=== PATIENT | female | born 2005 | race African-American/Black ===

== ENCOUNTER 2024-10-29 20:12 | Emergency (ER) | payer OTHER, SELFPAY ==
[2024-10-29 20:16] VITALS: BP 108/69; PULSE 70; RESP 16; TEMP 36.1; O2SAT 100
--- NOTE | 2024-10-29 21:31 | PC.NURSE ---
Pt presents to ED c/o 11/20 R side groin area, onset this AM. Pt states she was getting ready for work, bent down to pull pants up then felt R leg go numb and pain shooting to groin area.
[2024-10-29 21:34] VITALS: BP 111/69; PULSE 71; RESP 18; O2SAT 99
--- NOTE | 2024-10-29 23:15 | ED_ITS ---
HPI - General Adult General Chief complaint: Unspecified Stated complaint: groin pain Time Seen by Provider: 10/29/24 22:12 History of Present Illness HPI narrative: 18-year-old female with no pertinent past medical history presenting with acute onset right groin pain after she was putting on pants today. She states that she stood up suddenly and felt a pulling sensation in her right groin that radiated towards the right flank/low hip area. States that it hurts with walking. Denies any difficulty raising the leg or having any neurological complaints such as weakness or numbness in the foot. No trauma or injury. No history of anything with this happened during the past. No midline back pain, fever, chills. No saddle anesthesias or incontinence issues. She is has not taken anything prior to arrival. Review of Systems Review of Systems: As reviewed above in HPI Exam Narrative: GENERAL: [Well-appearing, well-nourished, and in no acute distress.] HEAD: [Normocephalic, atraumatic.] EYES: [PERRLA and EOMI.] ENT: Nares clear, no rhinorrhea or epistaxis. Mucous membranes moist. NECK: Supple. CHEST: [Clear to auscultation. No respiratory distress.] HEART: [Regular rate and rhythm]. No murmur heard. [Normal peripheral pulses.] ABDOMEN: [Soft, nondistended], [nontender], [No rigidity or guarding] EXTREMITIES: Full range of motion with positive straight leg raise on the right side, EHL and FHL 5/5, hip flexors and extensors 5/5 strength. Negative contralateral straight leg raise. Reproducible tenderness over the inguinal crease and sartorius muscle distribution without any overlying skin changes. SKIN: Warm, dry, no rash. NEURO: [No focal deficits]. Alert and oriented [x3.] No saddle anesthesias or incontinence. EHL FHL 5/5 strength and sensation intact bilaterally. PSYCH: [Normal mood and affect.] Course Vital Signs Vital signs: Vital Signs Temperature 36.1 C L 10/29/24 20:16 Pulse Rate 70 10/29/24 20:16 Respiratory Rate 16 10/29/24 20:16 Blood Pressure 108/69 10/29/24 20:16 Pulse Oximetry 100 10/29/24 20:16 Oxygen Delivery Room Air 10/29/24 20:16 Temperature 36.1 C L 10/29/24 20:16 Pulse Rate 71 10/29/24 21:34 Respiratory Rate 18 10/29/24 21:34 Blood Pressure 111/69 10/29/24 21:34 Pulse Oximetry 99 10/29/24 21:34 Oxygen Delivery Room Air 10/29/24 20:16 Medical Decision Making MDM Narrative Medical decision making narrative: 18-year-old female presenting with right inguinal/groin region pain after she was putting on her pants and standing straight up feeling a sharp pulling sensation in the groin. Her examination shows full range of motion with positive straight leg raise on the right side, EHL and FHL 5/5, hip flexors and extensors 5/5 strength. Negative contralateral straight leg raise. Reproducible tenderness over the inguinal crease and sartorius muscle distribution without any overlying skin changes. No red flag signs or symptoms of any neurological concern and her symptoms are consistent with a pulled muscle. Patient provided Toradol and will be sent home with Tylenol and ibuprofen. Patient given return precautions and discharge instructions. Medical Records Medical records reviewed: Yes I reviewed the external patient's medical records. Vital Signs Vital Signs: Vital Signs Temperature 36.1 C L 10/29/24 20:16 Pulse Rate 70 10/29/24 20:16 Respiratory Rate 16 10/29/24 20:16 Blood Pressure 108/69 10/29/24 20:16 Pulse Oximetry 100 10/29/24 20:16 Oxygen Delivery Room Air 10/29/24 20:16 Temperature 36.1 C L 10/29/24 20:16 Pulse Rate 71 10/29/24 21:34 Respiratory Rate 18 10/29/24 21:34 Blood Pressure 111/69 10/29/24 21:34 Pulse Oximetry 99 10/29/24 21:34 Oxygen Delivery Room Air 10/29/24 20:16 Discharge Plan Discharge Clinical Impression: Pulled muscle, Strain of right inguinal muscle Patient Disposition: Home Condition: Stable Instructions: Antibiotic Form, Muscle Strain (DC), Groin Strain (ED), Groin Pain (ED) Additional Instructions: Your symptoms are consistent with a pulled muscle in your inguinal canal/inguinal region. Recommendations are for high-dose anti-inflammatories to control the pain and swelling. Return with any new or worsening concerns otherwise follow-up with regular doctor. Patient Language: Romanian Prescriptions: New acetaminophen [Tylenol Extra Strength] 500 mg tablet 1,000 mg PO TID PRN (Reason: pain) Qty: 30 0RF ibuprofen 600 mg tablet 600 mg PO TID PRN (Reason: pain) Qty: 20 0RF Follow-up/Referrals: UNKNOWN,DOCTOR [Primary Care Provider] - Time of Disposition: 23:10
[2024-10-29] MEDS: KETOROLAC 30 MG/ML VIAL (*BKC) IM (23:22)
[2024-10-29 23:39] VITALS: BP 116/72; PULSE 86; RESP 16; O2SAT 99
== END 2024-10-29 23:40 | disposition home or self-care (01) ==
LOC: ANHED 23:13
PROVIDERS: Emergency Provider Student in an Organized Health Care Education/Training Program
DX: S39.011A Strain of muscle, fascia and tendon of abdomen, initial encounter (principal); X50.9XXA Other and unspecified overexertion or strenuous movements or postures, initial encounter
CPT/HCPCS: 96372; 99283; J1885

== ENCOUNTER 2024-12-02 11:11 | Emergency (ER) | payer OTHER, SELFPAY ==
[2024-12-02] VITALS (10 sets, daily range): BP systolic 109–134; BP diastolic 71–99; PULSE 85–137; RESP 16–20; TEMP 36.7–37.1; O2SAT 99–100
--- NOTE | ~2024-12-02 | XR_ITS ---
EXAMINATION: XR chest 2V 12/02/2024 11:50 INDICATION: Dyspnea. Tachycardia. PROCEDURE: 2 view chest COMPARISON: No prior studies for comparison. FINDINGS: The lungs are clear. The cardiomediastinal silhouette is within normal limits. There are no pleural effusions. There is no pneumothorax suspected. IMPRESSION: 1: NO ACUTE CARDIOPULMONARY DISEASE. Reviewed, dictated and finalized at location A.
--- NOTE | 2024-12-02 11:17 | ECG_ITS ---
Test Date: 2024-12-02 11:24:37 Measurements Intervals [place] Rate: 101 P: 63 MS: 141 QRS: 45 QRSD: 72 T: 50 QT: 322 QTc: 418 Interpretive Statements SINUS TACHYCARDIA No previous ECG available for comparison Electronically Signed On 12-02-2024 16:59:25 CDT by Gerald Ballesteros M.D.
[2024-12-02] MEDS: ASPIRIN 81 MG CHEWABLE TABLET 324 MG PO (11:38)
[2024-12-02 11:43] LABS: Hematocrit 41.6 % (37.0-47.0); Hemoglobin 13.3 g/dL (12.0-15.0); Immature Granulocyte Percent A 0.2 % (0-0.5); Lymphocytes Absolute Auto 1.46 K/mm3 (0.9-3.2); Mean Corpuscular HGB Conc 32.0 g/dl (32-36); Mean Corpuscular Hemoglobin 28.1 pg (26-34); Mean Corpuscular Volume 87.8 fl (80-100); Nucleated Red Blood Cells Absolute Auto 0.000 K/mm3 (0.0-0.012); Nucleated Red Blood Cells Perc 0.0 % (0.0-0.2); Platelet Count Result 281 k/mm3 (150-375); Red Blood Count 4.74 M/mm3 (4.2-5.4); White Blood Count 5.2 K/mm3 (4.5-10.0)
[2024-12-02 11:54] LABS: INR 1.0; Partial Thromboplastin Time 26.3 Seconds (22.3-36.8); Prothrombin Time 13.3 Seconds (11.1-14.7)
[2024-12-02 12:06] LABS: Alanine Aminotransferase 14 U/L (6-35); Albumin Level 4.4 g/dL (3.7-5.6); Alkaline Phosphatase 66 U/L (45-116); Anion Gap 11 mmol/L (4-12); Aspartate Amino Transferase 26 U/L (14-36); Bilirubin,Total 0.5 mg/dL (0.2-1.3); Blood Urea Nitrogen 16 mg/dL (8-21); Calcium 9.5 mg/dL (8.9-10.7); Carbon Dioxide 20 mmol/L (22-30); Chloride 107 mmol/L (98-107); Estimated CRCL calculation 80 ml/min; Estimated Glomerular Filt Rate > 60; Glucose 126 mg/dL (65-110); Lipase 84 U/L (23-300); Potassium 4.1 mmol/L (3.4-5.0); Sodium 138 mmol/L (134-143); Total Protein 7.9 g/dL (6.3-8.6)
[2024-12-02 12:14] LABS: Troponin I < 0.012 ng/mL (0.000-0.034)
[2024-12-02 12:20] LABS: Influenza A QL RT-PCR Negative (Negative); Influenza B QL RT-PCR Negative (Negative); RSV RNA, RT-PCR Negative (Negative); SARS-CoV-2 RNA PCR Negative (Negative)
[2024-12-02] MEDS: BENZONATATE 100 MG CAPSULE PO (13:25)
--- NOTE | 2024-12-02 13:26 | ED.GENADULT ---
HPI - General Adult General Chief complaint: Chest Pain Stated complaint: chest tightness Time Seen by Provider: 12/02/24 11:59 History of Present Illness HPI narrative: 18-year-old female presents to the emergency department for evaluation for worsening cough and congestion. Patient reports symptoms have been ongoing for the last few days. Patient does have a history of asthma. Patient states she is not a current smoker. 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 Related Data Allergies Allergy/AdvReac Type Severity Reaction Status Date / Time Sulfa (Sulfonamide Allergy Unknown Unknown Verified 10/29/24 23:21 Antibiotics) Review of Systems Review of Systems: All systems reviewed & are unremarkable except as noted in HPI and below Exam Narrative: APPEARANCE: Well appearing, no pain, no distress, well-nourished. HEAD: normocephalic, atraumatic. EYES: PERRLA/EOMI, conjunctivae clear. NOSE: Normal no drainage EARS:TMS clear with good light reflex. THROAT: Pharynx clear, no exudate. NECK: Supple. No adenopathy, no masses. RESPIRATORY: Airway patent, respirations nonlabored. Clear to auscultation bilaterally, no rales, rhonchi, wheezing. CARDIOVASCULAR: Regular rate and rhythm without murmurs rubs or gallops. ABDOMINAL: Soft, nontender, nondistended, normal bowel sounds MUSCULOSKELETAL: Moves all extremities. Strength/ROM intact, No edema, No calf tenderness. NEURO: Alert. Cranial nerves II through XII intact. Good gait. Good coordination SKIN: Warm, dry. Normal Color Course Vital Signs Vital signs: Vital Signs Temperature 98.0 F 12/02/24 11:14 Pulse Rate 137 H 12/02/24 11:14 Respiratory Rate 20 12/02/24 11:14 Blood Pressure 130/75 12/02/24 11:14 Pulse Oximetry 100 12/02/24 11:14 Oxygen Delivery Room Air 12/02/24 11:14 Temperature 98.7 F 12/02/24 14:35 Pulse Rate 105 H 12/02/24 16:41 Respiratory Rate 16 12/02/24 16:41 Blood Pressure 114/75 12/02/24 16:41 Pulse Oximetry 99 12/02/24 16:41 Oxygen Delivery Room Air 12/02/24 11:14 Medical Decision Making [facility] Narrative Medical decision making narrative: APPEARANCE: Well appearing, no pain, no distress, well-nourished. HEAD: normocephalic, atraumatic. EYES: PERRLA/EOMI, conjunctivae clear. NOSE: Normal no drainage EARS:TMS clear with good light reflex. THROAT: Pharynx clear, no exudate. NECK: Supple. No adenopathy, no masses. RESPIRATORY: Airway patent, respirations nonlabored. Clear to auscultation bilaterally, no rales, rhonchi, wheezing. CARDIOVASCULAR: Regular rate and rhythm without murmurs rubs or gallops. ABDOMINAL: Soft, nontender, nondistended, normal bowel sounds MUSCULOSKELETAL: Moves all extremities. Strength/ROM intact, No edema, No calf tenderness. NEURO: Alert. Cranial nerves II through XII intact. Good gait. Good coordination SKIN: Warm, dry. Normal Color PSYCHIATRIC: Normal affect/mood. Differential Diagnosis Differential Diagnosis: Asthma, pneumonia, COVID, RSV, influenza, bronchitis Vital Signs Vital Signs: Vital Signs Temperature 98.0 F 12/02/24 11:14 Pulse Rate 137 H 12/02/24 11:14 Respiratory Rate 20 12/02/24 11:14 Blood Pressure 130/75 12/02/24 11:14 Pulse Oximetry 100 12/02/24 11:14 Oxygen Delivery Room Air 12/02/24 11:14 Temperature 98.7 F 12/02/24 14:35 Pulse Rate 105 H 12/02/24 16:41 Respiratory Rate 16 12/02/24 16:41 Blood Pressure 114/75 12/02/24 16:41 Pulse Oximetry 99 12/02/24 16:41 Oxygen Delivery Room Air 12/02/24 11:14 Lab Data Lab results reviewed: Yes I reviewed the patient's lab results. 12/02/24 11:30 12/02/24 11:30 Labs: Lab Results 12/02/24 12/02/24 12/02/24 Range/Units 11:30 11:34 14:36 WBC 5.2 (4.5-10.0) K/mm3 RBC 4.74 (4.2-5.4) M/mm3 Hgb 13.3 (12.0-15.0) g/dL Hct 41.6 (37.0-47.0) % MCV 87.8 (80-100) fl MCH 28.1 (26-34) pg MCHC 32.0 (32-36) g/dl RDW 12.6 (11.5-14.5) % Plt Count 281 (150-375) k/mm3 MPV 9.0 (7.4-10.4) fl Immature Gran % (Auto) 0.2 (0-0.5) % Neut % (Auto) 60.8 (45.5-73.1) % Lymph % (Auto) 27.9 (18.3-44.2) % [place] % (Auto) 8.8 H (2.6-8.5) % Eos % (Auto) 2.1 (0-4.4) % Baso % (Auto) 0.2 (0.2-1.2) % Lymph # (Auto) 1.46 (0.9-3.2) K/mm3 [place] # (Auto) 0.5 (0.1-0.6) K/mm3 Eos # (Auto) 0.1 (0-0.3) K/mm3 Baso # (Auto) 0.0 (0.0-0.1) K/mm3 Abs Immat Gran (auto) 0.01 (0.00-0.031) K/mm3 Absolute Neuts (auto) 3.2 (1.3-6.7) K/mm3 Absolute Nucleated RBC 0.000 (0.0-0.012) K/mm3 Nucleated RBC % 0.0 (0.0-0.2) % PT 13.3 (11.1-14.7) Seconds INR 1.0 APTT 26.3 (22.3-36.8) Seconds D-Dimer 0.30 (<0.48) ug/mL Sodium 138 (134-143) mmol/L Potassium 4.1 (3.4-5.0) mmol/L Chloride 107 (98-107) mmol/L Carbon Dioxide 20 L (22-30) mmol/L Anion Gap 11 (4-12) mmol/L BUN 16 (8-21) mg/dL Creatinine 0.70 (0.7-1.0) mg/dL Estim Creat Clear Calc 80 ml/min Estimated GFR > 60 (59 - ) Glucose 126 H (65-110) mg/dL Calcium 9.5 (8.9-10.7) mg/dL Total Bilirubin 0.5 (0.2-1.3) mg/dL AST 26 (14-36) U/L ALT 14 (6-35) U/L Alkaline Phosphatase 66 (45-116) U/L Troponin I < 0.012 < 0.012 (0.000-0.034) ng/mL Total Protein 7.9 (6.3-8.6) g/dL Albumin 4.4 (3.7-5.6) g/dL Lipase 84 (23-300) U/L Influenza A (RT-PCR) Negative (Negative) Influenza B (RT-PCR) Negative (Negative) RSV (RT-PCR) Negative (Negative) SARS-CoV-2 RNA (RT-PCR) Negative (Negative) Imaging Data Radiologist's impression: Impressions Chest X-Ray 12/02/24 11:57 IMPRESSION: 1: NO ACUTE CARDIOPULMONARY DISEASE. ECG Data EKG #1: EKG Interpretation: normal rate, tachycardia, no ectopy, non-specific ST changes, normal QRS, normal QT and NL axis Discharge Plan Discharge Clinical Impression: Bronchitis Patient Disposition: Home Condition: Stable Instructions: Antibiotic Form, Acute Bronchitis (ED) Additional Instructions: Albuterol as needed for cough and shortness of breath. Tessalon Perles for cough. Close follow-up with your primary care physician. If you have any worsening symptoms and please call or return to the emergency department. Patient Language: Malaysian Prescriptions: New benzonatate 100 mg capsule 100 mg PO TID PRN (Reason: cough) Qty: 14 0RF albuterol sulfate 90 mcg/actuation HFA aerosol inhaler 1 puff inhalation QID Qty: 6.7 0RF No Action acetaminophen [Tylenol Extra Strength] 500 mg tablet 1,000 mg PO TID PRN (Reason: pain) Qty: 30 0RF ibuprofen 600 mg tablet 600 mg PO TID PRN (Reason: pain) Qty: 20 0RF Follow-up/Referrals: UNKNOWN,DOCTOR [Primary Care Provider] -
[2024-12-02] MEDS: ALBUTEROL SULFATE NEB 2.5 MG/3 ML INH 5 MG INHALATION (13:37)
--- NOTE | 2024-12-02 14:23 | ECG_ITS ---
Test Date: 2024-12-02 14:27:30 Measurements Intervals [place] Rate: 129 P: 68 [place]: 138 QRS: 27 QRSD: 81 T: 55 QT: 311 QTc: 456 Interpretive Statements SINUS TACHYCARDIA NONSPECIFIC T-WAVE ABNORMALITY ABNORMAL RHYTHM ECG Compared to ECG 12/02/2024 11:24:37 T-wave abnormality now present Electronically Signed On 12-02-2024 17:08:13 CDT by Gerald Ballesteros M.D.
[2024-12-02] MEDS: LACTATED RINGERS 1,000 ML 999 ML IV CONT (15:00)
[2024-12-02 15:21] LABS: Troponin I < 0.012 ng/mL (0.000-0.034)
== END 2024-12-02 16:44 | disposition home or self-care (01) ==
PROVIDERS: Student in an Organized Health Care Education/Training Program; Emergency Provider Emergency Medicine
DX: J40 Bronchitis, not specified as acute or chronic (principal); Z20.822 Contact with and (suspected) exposure to COVID-19; R00.0 Tachycardia, unspecified; R94.31 Abnormal electrocardiogram [ECG] [EKG]
CPT/HCPCS: 36415; 71046; 80053; 83690; 84484; 85025; 85380; 85610; 85730; 87637; 93005; 94640; 96360; 99284; A9270; J7120

== ENCOUNTER 2024-12-18 16:49 | Emergency (ER) | payer OTHER, SELFPAY ==
--- NOTE | ~2024-12-18 | XR_ITS ---
EXAMINATION: XR foot LT min 3V DATE: 12/18/2024 17:21 INDICATION: Stepped on glass years prior now presenting with left foot pain TECHNIQUE: Dorsoplantar, two oblique and lateral views of the left foot were obtained. COMPARISON: None. FINDINGS: There are a few radiopaque foreign bodies projecting over the plantar soft tissues at the level of th e anterior process of the calcaneus. There is mild bulging of the overlying skin surface. The largest thin triangular foreign body measures 1.4 cm length and 1.5 cm maximal orthogonal dimension. Appeara nce of the foreign bodies would be consistent with reported history of glass fragments. Bone alignment is normal. No fracture. Joint spaces are normal. No cortical erosions or periosteal re action to suggest ostomy myelitis. Soft tissues are otherwise unremarkable with no soft tissue gas. IMPRESSION: 1. A few radiopaque foreign bodies projecting over the soft tissues plantar to the anterior process o f the calcaneus with appearance consistent with reported history of glass fragments. 2. No osseous abnormality. Reviewed, dictated and finalized at location A. IMPRESSION: 1. A few radiopaque foreign bodies projecting over the soft tissues plantar to the anterior process of the calcaneus with appearance consistent with reported history of glass fragments. 2. No osseous abnormality.
[2024-12-18 17:04] VITALS: BP 106/60; PULSE 100; RESP 16; TEMP 36.8; O2SAT 99
--- NOTE | 2024-12-18 17:10 | ED.EXTPRO ---
HPI - Extremity Problem General Chief complaint: Extremity Problem,Nontraumatic <Caitie Huffman PA-C - Last Filed: 12/18/24 17:12> Stated complaint: foot pain, stepped on glass years ago <Caitie Huffman PA-C - Last Filed: 12/18/24 17:12> Time Seen by Provider: 12/18/24 17:22 <Caitie Huffman PA-C - Last Filed: 12/18/24 17:12> Focused HPI: 18-year-old female presents to the emergency department for pain to the bottom of her left foot for the past couple of days. Patient states a couple years ago she stepped on a piece of glass and removed the glass. She notes that she did have some purulence from the spot after the incident but has not had any issues since. Over the past couple today she started to develop pain and wound to the bottom of her foot. She states it hurts when she steps on her foot and feels like something is trying to come out of her foot. She denies recent purulence, surrounding redness or fever. She was not evaluated for the glass in her foot at the time of the incident. GENERAL: Well-appearing, well-nourished, and in no acute distress. HEAD: Normocephalic, atraumatic. CHEST: Clear to auscultation. ?No respiratory distress. EXT: Hyperkeratotic region to the plantar aspect of the left foot with tenderness to palpation. No active drainage, surrounding erythema, warmth or fluctuation, no induration. HEART: Regular rate and rhythm.? NEURO: ?Alert and oriented x3. Patient screened in triage and initial orders placed.? ?Additional care and disposition to be based upon?diagnostic testing and treatment. <Caitie Huffman PA-C - Last Filed: 12/18/24 17:12> Related Data Allergies/Adverse reactions: Allergies Allergy/AdvReac Type Severity Reaction Status Date / Time Sulfa (Sulfonamide Allergy Unknown Unknown Verified 12/18/24 16:50 Antibiotics) <Caitie Huffman PA-C - Last Filed: 12/18/24 17:12> Review of Systems Review of Systems: All systems reviewed & are unremarkable except as noted in HPI and below <Shayna Dunbar, RETAIL ADVERTISING SALES MANAGER - Last Filed: 12/18/24 18:38> Exam Narrative: GENERAL: Well appearing, well-nourished, non-toxic, in no acute distress. HEAD: Normocephalic, atraumatic. NECK: Supple. No adenopathy, no masses. RESPIRATORY: Airway patent, respirations nonlabored. Clear to auscultation bilaterally, no rales, rhonchi, wheezing. CARDIOVASCULAR: Regular rate and rhythm without murmurs, rubs, or gallops. Peripheral pulses 2+ and equal bilaterally. ABDOMINAL: Soft, nontender, nondistended, no hepatosplenomegaly. Normoactive BS. MUSCULOSKELETAL: Moves all extremities. Strength/ROM intact without gross deformities. SKIN: Warm, dry, normal color. No rashes. Small area of scaling over site of pain, soft to palpation, no purulent drainage NEURO: A&O X3. Speech clear. Cranial nerves II-XII intact. No ataxic movements. PSYCHIATRIC: Appropriate mood and affect. Normal interaction. <Shayna Dunbar, [place]IDEA - Last Filed: 12/18/24 18:38> Course Vital Signs Vital signs: Vital Signs Temperature 36.8 C 12/18/24 17:04 Pulse Rate 100 12/18/24 17:04 Respiratory Rate 16 12/18/24 17:04 Blood Pressure 106/60 12/18/24 17:04 Pulse Oximetry 99 12/18/24 17:04 Oxygen Delivery Room Air 12/18/24 17:04 Temperature 36.8 C 12/18/24 17:04 Pulse Rate 100 12/18/24 17:04 Respiratory Rate 16 12/18/24 17:04 Blood Pressure 106/60 12/18/24 17:04 Pulse Oximetry 99 12/18/24 17:04 Oxygen Delivery Room Air 12/18/24 17:04 <Caitie Huffman PA-C - Last Filed: 12/18/24 17:12> Vital Signs Temperature 36.8 C 12/18/24 17:04 Pulse Rate 100 12/18/24 17:04 Respiratory Rate 16 12/18/24 17:04 Blood Pressure 106/60 12/18/24 17:04 Pulse Oximetry 99 12/18/24 17:04 Oxygen Delivery Room Air 12/18/24 17:04 Temperature 36.8 C 12/18/24 17:04 Pulse Rate 100 12/18/24 17:04 Respiratory Rate 16 12/18/24 17:04 Blood Pressure 106/60 12/18/24 17:04 Pulse Oximetry 99 12/18/24 17:04 Oxygen Delivery Room Air 12/18/24 17:04 <Shayna Dunbar, RETAIL ADVERTISING SALES MANAGER - Last Filed: 12/18/24 18:38> MDM - Extremity (Nontraumatic) MDM Narrative Medical decision making narrative: 18-year-old female presents to the emergency department for pain to the bottom of her left foot for the past couple of days. Patient states a couple years ago she stepped on a piece of glass and removed the glass. She notes that she did have some purulence from the spot after the incident but has not had any issues since. Over the past couple today she started to develop pain and wound to the bottom of her foot. She states it hurts when she steps on her foot and feels like something is trying to come out of her foot. She denies recent purulence, surrounding redness or fever. She was not evaluated for the glass in her foot at the time of the incident. Labs Ordered: CBC, CMP, lactic acid Imaging Ordered: Left foot x-ray Medications Ordered: Toradol 15 mg IV Results: Patient's blood work does not indicate any concerns for systemic infection. Pt's L foot x-ray indicates There are a few radiopaque foreign bodies projecting over the plantar soft tissues at the level of the anterior process of the calcaneus. There is mild bulging of the overlying skin surface. The largest thin triangular foreign body measures 1.4 cm length and 1.5 cm maximal orthogonal dimension. Appearance of the foreign bodies would be consistent with reported history of glass fragments. Bone alignment is normal. No fracture. Joint spaces are normal. No cortical erosions or periosteal reaction to suggest ostomy myelitis. Soft tissues are otherwise unremarkable with no soft tissue gas. Diagnosis: Foreign object in foot, L foot pain Consults: Podiatry (outpatient) Patient Education/Shared MDM: Results of lab work and x-ray shared with patient. She endorses improvement of symptoms following medication administration. Patient strongly advised to follow-up with of insurance marketing specialist as soon as possible. She will be discharged home with a prescription for ibuprofen 800 mg and Keflex PO Strict return precautions provided. Patient verbalized understanding and is in agreement with plan. Vital signs stable at time of discharge. All questions answered. <Shayna Dunbar APRN - Last Filed: 12/18/24 18:38> Differential Diagnosis Differential diagnosis: Likely cellulitis and other (Foreign object in foot, sepsis, abscess) <Shayna Dunbar APRN - Last Filed: 12/18/24 18:38> Lab Data Result diagrams: 12/18/24 18:07 12/18/24 18:07 <Caitie Huffman PA-C - Last Filed: 12/18/24 17:12> Labs: Lab Results 12/18/24 Range/Units 18:07 WBC 5.2 (4.5-10.0) K/mm3 RBC 4.05 L (4.2-5.4) M/mm3 Hgb 11.7 L (12.0-15.0) g/dL Hct 36.2 L (37.0-47.0) % MCV 89.4 (80-100) fl MCH 28.9 (26-34) pg MCHC 32.3 (32-36) g/dl RDW 12.8 (11.5-14.5) % Plt Count 265 (150-375) k/mm3 MPV 8.9 (7.4-10.4) fl Immature Gran % (Auto) 0.2 (0-0.5) % Neut % (Auto) 42.7 L (45.5-73.1) % Lymph % (Auto) 44.0 (18.3-44.2) % [place] % (Auto) 10.0 H (2.6-8.5) % Eos % (Auto) 2.7 (0-4.4) % Baso % (Auto) 0.4 (0.2-1.2) % Lymph # (Auto) 2.29 (0.9-3.2) K/mm3 [place] # (Auto) 0.5 (0.1-0.6) K/mm3 Eos # (Auto) 0.1 (0-0.3) K/mm3 Baso # (Auto) 0.0 (0.0-0.1) K/mm3 Abs Immat Gran (auto) 0.01 (0.00-0.031) K/mm3 Absolute Neuts (auto) 2.2 (1.3-6.7) K/mm3 Absolute Nucleated RBC 0.000 (0.0-0.012) K/mm3 Nucleated RBC % 0.0 (0.0-0.2) % Sodium Pending Potassium Pending Chloride Pending Carbon Dioxide Pending Anion Gap Pending BUN Pending Creatinine Pending Estim Creat Clear Calc Pending Estimated GFR Pending Glucose Pending Lactic Acid 1.3 (0.7-2.0) mmol/L Calcium Pending Total Bilirubin Pending AST Pending ALT Pending Alkaline Phosphatase Pending Total Protein Pending Albumin Pending <Caitie Huffman PA-C - Last Filed: 12/18/24 17:12> Lab Results 12/18/24 Range/Units 18:07 WBC 5.2 (4.5-10.0) K/mm3 RBC 4.05 L (4.2-5.4) M/mm3 Hgb 11.7 L (12.0-15.0) g/dL Hct 36.2 L (37.0-47.0) % MCV 89.4 (80-100) fl MCH 28.9 (26-34) pg MCHC 32.3 (32-36) g/dl RDW 12.8 (11.5-14.5) % Plt Count 265 (150-375) k/mm3 MPV 8.9 (7.4-10.4) fl Immature Gran % (Auto) 0.2 (0-0.5) % Neut % (Auto) 42.7 L (45.5-73.1) % Lymph % (Auto) 44.0 (18.3-44.2) % [place] % (Auto) 10.0 H (2.6-8.5) % Eos % (Auto) 2.7 (0-4.4) % Baso % (Auto) 0.4 (0.2-1.2) % Lymph # (Auto) 2.29 (0.9-3.2) K/mm3 [place] # (Auto) 0.5 (0.1-0.6) K/mm3 Eos # (Auto) 0.1 (0-0.3) K/mm3 Baso # (Auto) 0.0 (0.0-0.1) K/mm3 Abs Immat Gran (auto) 0.01 (0.00-0.031) K/mm3 Absolute Neuts (auto) 2.2 (1.3-6.7) K/mm3 Absolute Nucleated RBC 0.000 (0.0-0.012) K/mm3 Nucleated RBC % 0.0 (0.0-0.2) % Sodium Pending Potassium Pending Chloride Pending Carbon Dioxide Pending Anion Gap Pending BUN Pending Creatinine Pending Estim Creat Clear Calc Pending Estimated GFR Pending Glucose Pending Lactic Acid 1.3 (0.7-2.0) mmol/L Calcium Pending Total Bilirubin Pending AST Pending ALT Pending Alkaline Phosphatase Pending Total Protein Pending Albumin Pending <Shayna Dunbar APRN - Last Filed: 12/18/24 18:38> Discharge Plan Discharge Clinical Impression: Left foot pain, Puncture wound of left foot with foreign body <Caitie Huffman PA-C - Last Filed: 12/18/24 17:12> Patient Disposition: Home <Caitie Huffman PA-C - Last Filed: 12/18/24 17:12> Condition: Stable <Caitie Huffman PA-C - Last Filed: 12/18/24 17:12> Instructions: Antibiotic Form <Caitie Huffman PA-C - Last Filed: 12/18/24 17:12> Patient Language: Sami <PAYTON Vale Last Filed: 12/18/24 17:12> Prescriptions: New cephalexin 500 mg capsule 500 mg PO Q8H 7 Days Qty: 21 0RF ibuprofen 800 mg tablet 800 mg PO TID PRN (Reason: pain) Qty: 30 0RF No Action acetaminophen [Tylenol Extra Strength] 500 mg tablet 1,000 mg PO TID PRN (Reason: pain) Qty: 30 0RF ibuprofen 600 mg tablet 600 mg PO TID PRN (Reason: pain) Qty: 20 0RF benzonatate 100 mg capsule 100 mg PO TID PRN (Reason: cough) Qty: 14 0RF albuterol sulfate 90 mcg/actuation HFA aerosol inhaler 1 puff inhalation QID Qty: 6.7 0RF <Caitie Huffman PA-C - Last Filed: 12/18/24 17:12> Follow-up/Referrals: [facility] [Provider Group] (podiatry) Aureliano Fishman DPM [Physician] - (podiatry) Pamela Vasquze DPM [Physician] - (podiatry) UNKNOWN,DOCTOR [Primary Care Provider] - <Caitie Huffman PA-C - Last Filed: 12/18/24 17:12> Stand Alone Forms: Work/School Release IP <Caitie Huffman PA-C - Last Filed: 12/18/24 17:12> Time of Disposition: 18:38 <Caitie Huffman PA-C - Last Filed: 12/18/24 17:12> 18:38 <Shayna Dunbar APRN - Last Filed: 12/18/24 18:38>
[2024-12-18 18:14] LABS: Hematocrit 36.2 % (37.0-47.0); Hemoglobin 11.7 g/dL (12.0-15.0); Immature Granulocyte Percent A 0.2 % (0-0.5); Lymphocytes Absolute Auto 2.29 K/mm3 (0.9-3.2); Mean Corpuscular HGB Conc 32.3 g/dl (32-36); Mean Corpuscular Hemoglobin 28.9 pg (26-34); Mean Corpuscular Volume 89.4 fl (80-100); Nucleated Red Blood Cells Absolute Auto 0.000 K/mm3 (0.0-0.012); Nucleated Red Blood Cells Perc 0.0 % (0.0-0.2); Platelet Count Result 265 k/mm3 (150-375); Red Blood Count 4.05 M/mm3 (4.2-5.4); White Blood Count 5.2 K/mm3 (4.5-10.0)
[2024-12-18 18:26] LABS: Alanine Aminotransferase 12 U/L (6-35); Albumin Level 4.1 g/dL (3.7-5.6); Alkaline Phosphatase 59 U/L (45-116); Anion Gap 10 mmol/L (4-12); Aspartate Amino Transferase 22 U/L (14-36); Bilirubin,Total 0.6 mg/dL (0.2-1.3); Blood Urea Nitrogen 17 mg/dL (8-21); Calcium 8.9 mg/dL (8.9-10.7); Carbon Dioxide 23 mmol/L (22-30); Chloride 105 mmol/L (98-107); Estimated CRCL calculation 70 ml/min; Estimated Glomerular Filt Rate > 60; Glucose 122 mg/dL (65-110); Potassium 3.8 mmol/L (3.4-5.0); Sodium 138 mmol/L (134-143); Total Protein 7.1 g/dL (6.3-8.6)
[2024-12-18] MEDS: KETOROLAC 30 MG/ML VIAL (*BKC) 15 MG IM (18:43)
[2024-12-18] MEDS: TETANUS,DIPHTHERIA,AC PERTUSSIS ADULT (0.5 ML) BOOSTRIX IM (18:43)
== END 2024-12-18 19:01 | disposition home or self-care (01) ==
PROVIDERS: Emergency Provider Registered Nurse
DX: S91.342A Puncture wound with foreign body, left foot, initial encounter (principal); Z23 Encounter for immunization; W25.XXXA Contact with sharp glass, initial encounter; W45.8XXA Other foreign body or object entering through skin, initial encounter
CPT/HCPCS: 36415; 73630; 80053; 83605; 85025; 90471; 90715; 96372; 99283; J1885

== ENCOUNTER 2025-01-02 23:00 | Emergency (ER) | payer OTHER, SELFPAY ==
[2025-01-02 23:05] VITALS: BP 119/80; PULSE 70; RESP 16; TEMP 36.7; O2SAT 100
--- NOTE | 2025-01-02 23:21 | ED_ITS ---
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 Patient works at [employer]. States the pain started suddenly. The nurse policy change clerks supervisor did place Lidoderm patch patient's patient states that she is still having pain so she was sent down to the ER for further evaluation. Denies any falls or trauma. No additional symptoms or concerns at this time. Related Data Allergies Allergy/AdvReac Type Severity Reaction Status Date / Time Sulfa (Sulfonamide Allergy Unknown Unknown Verified 12/18/24 16:50 Antibiotics) Review of Systems Review of Systems: All systems are reviewed and are negative unless stated otherwise in the HPI. Exam Narrative: General: Alert, awake, afebrile, in no acute distress. HEENT: PERRL, no rhinorrhea, no post nasal drip, oropharynx clear. Neck: Trachea midline, no JVD, no lymphadenopathy. Cardiovascular: Regular rate and rhythm, no murmurs, rubs or gallops, no peripheral edema. Respiratory: Clear to auscultation bilaterally, no tachypnea, no wheezing, no rhonchi, no rubs, no respiratory distress. Abdomen: Soft, nontender, nondistended, no rebound, no guarding, no peritoneal signs. Musculoskeletal: No joint swelling or deformity, normal muscle tone. Back: No midline tenderness palpation over the cervical, thoracic or lumbar spine, tenderness to palpation over the lumbar paraspinal region bilaterally. Skin: No rashes or petechia, no signs of infection. Psychiatric: Alert and oriented, normal behavior and judgment for situation. Neurological: Alert and oriented to person, place, and time. Follows all commands. No focal deficits, speech is clear and fluent. Course Vital Signs Vital signs: Vital Signs Temperature 98.1 F 01/02/25 23:05 Pulse Rate 70 01/02/25 23:05 Respiratory Rate 16 01/02/25 23:05 Blood Pressure 119/80 01/02/25 23:05 Pulse Oximetry 100 01/02/25 23:05 Oxygen Delivery Room Air 01/02/25 23:05 Temperature 98.1 F 01/02/25 23:05 Pulse Rate 70 01/02/25 23:05 Respiratory Rate 16 01/02/25 23:05 Blood Pressure 119/80 01/02/25 23:05 Pulse Oximetry 100 01/02/25 23:05 Oxygen Delivery Room Air 01/02/25 23:05 MDM - Back Pain/Injury MDM Narrative Medical decision making narrative: The patient was evaluated by myself in the emergency department. History is obtained from patient who is an independent historian and physical exam was performed. External medical records were reviewed at this time. Patient was administered 30mg of IM Toradol for pain at this time. Differential diagnosis considerations include musculoskeletal strain, herniated disc, sciatica. Comorbidities impacting this visit include none. I have evaluated and discussed social determinants of health with the patient that could potentially impact subsequent diagnosis and treatment plans. On repeat assessment of the patient, reevaluation revealed that the patient is doing well and is in no acute distress. Patient symptoms have improved since she arrived to our emergency department. Repeat vital signs were all reviewed and noted to be stable. Differential diagnosis and treatment plan were discussed with the patient at bedside. Patient agrees with discussion and after shared medical decision making agrees with discharge. All questions were answered to the patient's satisfaction. Patient will follow up with her PCP in 3-5 days. Script for muscle relaxers were sent to patient's pharmacy to take as needed for her lower back pain along with a script for Lidoderm patches and she was informed these can stay for up to 12 hours. Patient was informed that if her symptoms do not improve within the next few days she may need an MRI outpatient to evaluate for any herniated discs. Patient was provided with strict return precautions and instructed to return to the emergency department if any new or worsening symptoms develop. The patient was discharged in stable condition. Discharge Plan Discharge Clinical Impression: Strain of lumbar region Patient Disposition: Home Condition: Improved Instructions: Antibiotic Form, Muscle Strain (DC), Acute Low Back Pain (ED) Additional Instructions: Please follow up with your Family doctor within the next 3-5 days. Use the prescribed muscle relaxers /lidoderm patches to help with your lower back pain. You also instructed to use NSAIDs including ibuprofen, Aleve, Advil to help with your symptoms. If your symptoms do not improve, you may need an MRI of your lower back to evaluate for any herniated discs. Return to the ED if any new or worsening symptoms develop. Patient Language: Citizen Of [place] Prescriptions: New methocarbamol 750 mg tablet 750 mg PO HS PRN (Reason: back pain) Qty: 10 0RF lidocaine [Lidoderm] 5 % adhesive patch,medicated 1 patch topical DAILY PRN (Reason: back pain) Qty: 15 0RF Rx Instructions: leave on most painful area for up to 12 hrs No Action acetaminophen [Tylenol Extra Strength] 500 mg tablet 1,000 mg PO TID PRN (Reason: pain) Qty: 30 0RF ibuprofen 600 mg tablet 600 mg PO TID PRN (Reason: pain) Qty: 20 0RF benzonatate 100 mg capsule 100 mg PO TID PRN (Reason: cough) Qty: 14 0RF albuterol sulfate 90 mcg/actuation HFA aerosol inhaler 1 puff inhalation QID Qty: 6.7 0RF cephalexin 500 mg capsule 500 mg PO Q8H 7 Days Qty: 21 0RF ibuprofen 800 mg tablet 800 mg PO TID PRN (Reason: pain) Qty: 30 0RF Follow-up/Referrals: UNKNOWN,DOCTOR [Primary Care Provider] - 3 Days Stand Alone Forms: Work/School Release IP Time of Disposition: 23:17
[2025-01-02] MEDS: KETOROLAC 30 MG/ML VIAL (*BKC) IM (23:33)
[2025-01-03] VITALS: BP 104/71; PULSE 62; RESP 14; O2SAT 100
[2025-01-03 00:08] VITALS: BP 104/71; PULSE 62; RESP 14; O2SAT 100
== END 2025-01-03 | disposition home or self-care (01) ==
PROVIDERS: Emergency Provider Emergency Medicine
DX: S39.012A Strain of muscle, fascia and tendon of lower back, initial encounter (principal); X50.0XXA Overexertion from strenuous movement or load, initial encounter; Y93.F2 Activity, caregiving, lifting
CPT/HCPCS: 96372; 99283; J1885